=== PATIENT | male | born 1990 | race Caucasian/White ===

== ENCOUNTER 2019-06-20 15:09 | Emergency (ER) | payer OTHER ==
[~2019-06-20] VITALS: Ht 185.4 cm; Wt 95.3 kg
[~2019-06-20 15:09] MED LIST: ACETAMINOPHEN-1 EAC1 PO; ACID CONTROL150 MG PO; AMANTADINE100 M1 PO; CELEXA40 MG PO; IBUPROFEN 800800 M1 PO; KEPPRA 500 MG500 M1 PO; LAMICTAL100 MG PO; ONDANSETRON HCL4 M2 PO
[2019-06-20] MEDS ORDERED: DOXYCYCLINE 10100 M2 PO (16:38)
[2019-06-20] MEDS ORDERED: NORCO 5-325 TA1 EAC1 PO (16:38)
[2019-06-20 17:00] VITALS: BP 123/80
== END 2019-06-20 17:01 | disposition home or self-care (01) ==
LOC: M.ERS 15:09
DX: L02.415 Cutaneous abscess of right lower limb (principal); Z88.1 Allergy status to other antibiotic agents

== ENCOUNTER 2019-12-27 11:20 | Emergency (ER) | payer OTHER ==
[~2019-12-27] VITALS: Ht 185.4 cm; Wt 93.0 kg
[~2019-12-27 11:20] MED LIST changes: +DOXYCYCLINE 10100 M2 PO; +NORCO 5-325 TA1 EAC1 PO
[2019-12-27] MEDS ORDERED: NORCO 5-325 TA1 EAC1 PO (12:16)
[2019-12-27 13:00] VITALS: BP 142/86
== END 2019-12-27 13:00 | disposition home or self-care (01) ==
LOC: M.ERS 11:20
DX: S82.62XA Displaced fracture of lateral malleolus of left fibula, initial encounter for closed fracture (principal); Z88.1 Allergy status to other antibiotic agents; Z88.8 Allergy status to other drugs, medicaments and biological substances; W18.39XA Other fall on same level, initial encounter; Y93.89 Activity, other specified; Y92.89 Other specified places as the place of occurrence of the external cause; Y99.8 Other external cause status